=== PATIENT | female | born 1995 | race Two or more races ===

== ENCOUNTER 2022-01-27 01:52 | Emergency (ER) | payer MEDICAID ==
[~2022-01-27] VITALS: Ht 167.6 cm; Wt 59.0 kg
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
[2022-01-27] MEDS ORDERED: IBUPROFEN 400 MG TABLET ONE (02:16)
--- NOTE | 2022-01-27 02:23 | NUR ---
[employer] AT PT'S BEDSIDE
[2022-01-27] MEDS ORDERED: IBUPROFEN 400 MG TABLET PO ONE (02:30)
--- NOTE | 2022-01-27 02:55 | NUR ---
[facility]NE[facility] PAGED FOR RADIOLOGY READ
--- NOTE | 2022-01-27 04:05 | NUR ---
PT RETURNED TO ER BED [address] VIA CON
--- NOTE | 2022-01-27 04:17 | NUR ---
URINE COLLECTED AND SENT TO LAB
[2022-01-27] MEDS ORDERED: HYDR-3972 PO (04:45)
--- NOTE | 2022-01-27 05:06 | NUR ---
Patient discharged to home in stable condition. RX Written and verbal after care instructions given. Patient verbalizes understanding of instruction. PT ambulatory with a steady gait
[2022-01-27 05:08] VITALS: BP 121/75
== END 2022-01-27 05:09 | disposition home or self-care (01) ==
LOC: ER 02:07
DX: S32.010A Wedge compression fracture of first lumbar vertebra, initial encounter for closed fracture (principal); Z60.2 Problems related to living alone; Z79.899 Other long term (current) drug therapy; V89.2XXA Person injured in unspecified motor-vehicle accident, traffic, initial encounter; Y93.89 Activity, other specified; Y92.89 Other specified places as the place of occurrence of the external cause; Y99.8 Other external cause status
CPT/HCPCS: 72100-TC; 72131-TC